=== PATIENT | female | born 1950 | race Hispanic/Latino ===

== ENCOUNTER 2020-12-14 13:51 | Outpatient (CLI) | payer MEDICARE ==
--- NOTE | 2020-12-14 17:37 | XRay Report ---
ABDOMEN 1 VIEW(S) INDICATION: CALCULUS OF URETER N20.1 COMPARISON: None available. FINDINGS: Bowel gas pattern: Within normal limits. No dilated loops of large or small bowel. Free air: None. Calcified gallstones: None seen. Calcified urinary tract calculi: Bilateral renal calculi are present. Additional Findings: None. Skeletal structures: No acute abnormality. IMPRESSION: 1. Bilateral renal calculi. Signer Name: Gilberto Kennedy MD Signed: 12/14/2020 5:32 PM Workstation Name: [id number]
== END 2020-12-14 13:52 | disposition home or self-care (01) ==
LOC: SPVIMAG 13:51
PROVIDERS: ATTEND Urology
DX: N20.0 Calculus of kidney (principal); N20.1 Calculus of ureter
CPT/HCPCS: 74018

== ENCOUNTER 2021-02-25 09:07 | Outpatient (CLI) | payer MEDICARE ==
--- NOTE | 2021-02-25 09:46 | XRay Report ---
ABDOMEN 1 VIEW(S) INDICATION / CLINICAL INFORMATION: CALCULUS OF KIDNEY N20.1. COMPARISON: 12/14/2020 FINDINGS: TUBES / LINES: Double-J left ureteral stent projects in expected position. BOWEL GAS PATTERN: No significant abnormality. FREE AIR / EXTRALUMINAL GAS: None seen. ADDITIONAL FINDINGS: Bilateral nephrolithiasis is noted, similar to the prior. No stones are seen dany ng the course of the left ureteral stent. IMPRESSION: 1. Stent in satisfactory position. 2. Bilateral nephrolithiasis. Signer Name: Ivan De La Paz MD Signed: 02/25/2021 9:41 AM Workstation Name: [id number]
== END 2021-02-25 09:08 | disposition home or self-care (01) ==
LOC: SPVIMAG 09:07
PROVIDERS: ATTEND Urology
DX: N20.0 Calculus of kidney (principal); N20.1 Calculus of ureter
CPT/HCPCS: 74018